=== PATIENT | female | born 2000 | race Caucasian/White ===

== ENCOUNTER 2021-02-10 16:54 | Emergency (ER) | payer OTHER ==
[~2021-02-10 16:54] MED LIST: FEOSOL325 MG PO; IBUPROFEN800 MG PO; PERCOCET 5-3251 EACH PO; PRENATAL FORMU1 EACH PO; ROBAXIN750 MG PO; ULTRAM50 MG PO
[2021-02-10 18:34] LABS: BILIRUBIN NEGATIVE (NEGATIVE); BLOOD TRACE-LYSED Ery/uL (NEGATIVE); COLOR YELLOW (YELLOW); GLUCOSE (U) NORMAL (NORMAL); LEUKOCYTES 2+ Leu/uL (NEGATIVE); NITRITE NEGATIVE (NEGATIVE); PROTEIN NEGATIVE (NEGATIVE); UROBILINOGEN 0.2 mg/dL (0.2-1.0)
[2021-02-10 18:39] LABS: CLARITY SLIGHTLY HAZY (CLEAR)
[2021-02-10 18:42] LABS: BACTERIA 1+
[2021-02-10 19:05] LABS: BASOPHIL 0.4 % (0-2); EOSINOPHIL 0.5 % (0-5); HCT 44.2 % (37.0-47.0); HGB 14.9 g/dl (12.5-16.0); LYMPHOCYTE 20.1 % (15-48); MCH 31.1 pg (25.0-31.0); MCHC 33.7 g/dL (32.0-36.0); MCV 92.3 fL (78.0-100.0); MPV 10.3 fL (6.0-9.5); NEUTROPHIL 72.6 % (41-80); NRBC 0; PLT 284 K/uL (150-400); RBC 4.79 M/uL (4.20-5.40); RDW 12.8 % (11.5-14.0); WBC 11.2 K/uL (4.0-10.5)
[2021-02-10 19:29] LABS: ALBUMIN 4.4 g/dL (3.4-5.0); BILIRUBIN - TOTAL 0.4 mg/dL (0.2-1.0); BUN/CREAT RATIO (CALC) 19.6 RATIO; CREATININE 0.56 mg/dL (0.51-0.95); GLOBULIN (CALCULATION) 3.5 g/dL; POTASSIUM 3.9 mmol/L (3.5-5.1); TOTAL PROTEIN 7.9 g/dL (6.4-8.2)
[2021-02-10] MEDS ORDERED: BACTRIM DS TAB1 EACH PO (20:18)
[2021-02-10] MEDS ORDERED: ZOFRAN4 M1 PO (20:20)
== END 2021-02-10 20:29 | disposition home or self-care (01) ==
LOC: FER 16:54
PROVIDERS: Nurse Practitioner Family
DX: N39.0 Urinary tract infection, site not specified (principal); Z87.442 Personal history of urinary calculi; Z98.890 Other specified postprocedural states; Z96.0 Presence of urogenital implants; Z88.5 Allergy status to narcotic agent
CPT/HCPCS: 36415; 80053; 81001; 85025; 87088; J1885; J2405; J7030